=== PATIENT | female | born 1990 | race Caucasian/White ===

== ENCOUNTER 2021-04-08 14:34 | Emergency (ER) | payer OTHER ==
[~2021-04-08] VITALS: Ht 162 cm; Wt 75.0 kg
[2021-04-08] MEDS ORDERED: NS IV 1000 ML 1,000 ML IV SCH (14:45)
[2021-04-08 15:05] LABS: HEMATOCRIT 44 % (35-52); HEMOGLOBIN 14.5 G/DL (11.5-16.0); MEAN CORPUSCULAR HEMOGLOBIN 28 PG (25-34); MEAN CORPUSCULAR HGB CONC 33 G/DL (32-36); MEAN CORPUSCULAR VOLUME 83 FL (80-99); PLATELET COUNT 212 10^3/uL (130-400); WHITE BLOOD COUNT 7.7 10^3/uL (4.3-11.0)
[2021-04-08 15:06] LABS: BASOPHILS % (AUTO) 0 % (0-10); EOSINOPHILS % (AUTO) 0 % (0-10); LYMPHOCYTES # (AUTO) 1.1 X 10^3 (1.0-4.0); LYMPHOCYTES % (AUTO) 14 % (12-44); MEAN PLATELET VOLUME 10.9 FL (7.4-10.4); MONOCYTES # (AUTO) 0.3 X 10^3 (0.0-1.0); MONOCYTES % (AUTO) 3 % (0-12); NEUTROPHILS # (AUTO) 6.3 X 10^3 (1.8-7.8); NEUTROPHILS % (AUTO) 82 % (42-75)
[2021-04-08 15:18] LABS: BILIRUBIN,TOTAL 0.4 MG/DL (0.1-1.0); BUN/CREATININE RATIO 14; CALCIUM 9.2 MG/DL (8.5-10.1); CARBON DIOXIDE 18 MMOL/L (21-32); CHLORIDE 96 MMOL/L (98-107); GFR ESTIMATED 84; GLUCOSE 81 MG/DL (70-105); POTASSIUM 4.1 MMOL/L (3.6-5.0); SODIUM 136 MMOL/L (135-145)
[2021-04-08 15:19] LABS: ALANINE AMINOTRANSFERASE 18 U/L (0-55); ALBUMIN 4.1 GM/DL (3.2-4.5); ALKALINE PHOSPHATASE 86 U/L (40-136)
[2021-04-08] MEDS ORDERED: ONDANSETRON 4 MG/2 ML (SDV) Z0FRAN IVP ONE (15:45)
--- NOTE | 2021-04-08 16:49 | ED General ---
General Chief Complaint: Abdominal/GI Problems Stated Complaint: DIZZINESS; WEAKNESS; COVID+ Nursing Triage Note: PT REPORTS SHE IS COVID + AND DIAGNOESED ON SUNDAY. HAS NOT BEEN ABLE TO KEEP ANYTHING DOWN TODAY. SHE TRIED HER PCP AND THEY HAD NOT CALLED HER BACK UNTIL SHE WAS HERE IN ER. Source of Information: Patient History of Present Illness Date Seen by Provider: Apr 08, 2021 Time Seen by Provider: 16:31 Initial Comments 31-year-old female presenting with diagnosis of Covid 19 on Sunday and having nausea, vomiting, diarrhea, cough. She states that they have been trying to ca denis Osuna through the [facility] clinic and having trouble getting hold of her. The wanted to try and get nausea medicine and steroids to help with her symptoms and when he can return the family came to the emergency department since she felt so bad. She has generalized body aches and fatigue. She feels dizzy and lightheaded especially when she stands up. She has had decreased urine output. She has abdominal wall pain due to cough, nausea and vomiting. She has had fever and chills at home. Severity: Severe Associated Systoms: No Chest Pain; Cough; No Diaphoresis; Fever/Chills, Hea daches, Malaise, Nausea/Vomiting; No Rash, No Seizure; Shortness of Air; No Syncope; Weakness Allergies and Home Medications Allergies Coded Allergies: No Known Drug Allergies (Unverified , 04/08/21) Home Medications Azithromycin 500 Mg Tablet, 500 MG PO DAILY Prescribed by: KATERIN LYON on 04/08/211829 Metoclopramide HCl 10 Mg Tablet, 10 MG PO Q6H PRN for NAUSEA/VOMITING Prescribed by: KATERIN LYON on 04/08/211829 Prednisone 20 Mg Tab, 40 MG PO DAILY Prescribed by: KATERIN GALINDORT on 04/08/211829 Patient Home Medication List Home Medication List Reviewed: Yes Review of Systems Review of Systems Constitutional: chills, dizziness, fever, malaise, weakness EENTM: nose congestion Respiratory: cough, short of breath; No stridor Cardiovascular: No chest pain Gastrointestinal: abdominal pain (abdominal wall pain), nausea, vomiting Genitourinary: decreased output Musculoskeletal: other (generalized muscle and body aches) Skin: No rash Psychiatric/Neurological: Weakness (general) Past Qpmgwab-Poxesq-Vgpxls Hx Patient Social History Tobacco Use?: No Use of E-Cig and/or Vaping dev: No Substance use?: No Alcohol Use?: No Pt feels they are or have been: No Past Medical History Respiratory: No Cardiac: No Neurological: No Genitourinary: No Gastrointestinal: No Musculoskeletal: No Endocrine: No HEENT: No Cancer: No Psychosocial: No Physical Exam Vital Signs Vital Signs - First Documented 04/08/21 14:45 Temp 36.8 Pulse 117 Resp 20 B/P (MAP) 151/98 (115) Pulse Ox 98 O2 Delivery Room Air Capillary Refill : Less Than 3 Seconds Height, Weight, BMI Height: '" Weight: lbs. oz. kg; 28.00 BMI Method: General Appearance: Mild Distress (appears to not feel well) HEENT: PERRL/EOMI; No Moist Mucous Membranes (slightly dry mucous membranes) Neck: Full Range of Motion, Normal Inspection, Non Tender, Supple Respiratory: No Accessory Muscle Use, No Respiratory Distress, Decreased Breath Sounds, Rhonci Cardiovascular: Normal Peripheral Pulses, Tachycardia Gastrointestinal: Normal Bowel Sounds, No Pulsatile Mass, Soft, Tenderness (tender to abdominal wall muscles) Rectal: Deferred Extremity: Normal Capillary Refill, Normal Range of Motion, No Pedal Edema Neurologic/Psychiatric: Alert, Oriented x3, No Motor/Sensory Deficits, 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 Norm as Tested Skin: Normal Color, Warm/Dry Progress/Results/Core Measures Suspected Sepsis SIRS Temperature: Pulse: 117 Respiratory Rate: 20 Laboratory Tests 04/08/21 14:50: White Blood Count 7.7 Blood Pressure 151 /98 Mean: 115 Laboratory Tests 04/08/21 14:50: Creatinine 0.80, INR Comment 1.0, Platelet Count 212, Total Bilirubin 0.4 Results/Orders Lab Results Laboratory Tests Test 04/08/21 14:50 04/08/21 18:05 Range/Units White Blood Count 7.7 4.3-11.0 10^3/uL Red Blood Count 5.25 4.35-5.85 10^6/uL Hemoglobin 14.5 11.5-16.0 G/DL Hematocrit 44 35-52 % Mean Corpuscular Volume 83 80-99 FL Mean Corpuscular Hemoglobin 28 25-34 PG Mean Corpuscular Hemoglobin Concent 33 32-36 G/DL Red Cell Distribution Width 15.0 H 10.0-14.5 % Platelet Count 212 130-400 10^3/uL Mean Platelet Volume 10.9 H 7.4-10.4 FL Immature Granulocyte % (Auto) 1 % Neutrophils (%) (Auto) 82 H 42-75 % Lymphocytes (%) (Auto) 14 12-44 % Monocytes (%) (Auto) 3 0-12 % Eosinophils (%) (Auto) 0 0-10 % Basophils (%) (Auto) 0 0-10 % Neutrophils # (Auto) 6.3 1.8-7.8 X 10^3 Lymphocytes # (Auto) 1.1 1.0-4.0 X 10^3 Monocytes # (Auto) 0.3 0.0-1.0 X 10^3 Eosinophils # (Auto) 0.0 0.0-0.3 10^3/uL Basophils # (Auto) 0.0 0.0-0.1 10^3/uL Immature Granulocyte # (Auto) 0.1 0.0-0.1 10^3/uL Prothrombin Time 13.0 12.2-14.7 SEC INR Comment 1.0 0.8-1.4 Activated Partial Thromboplast Time 31 24-35 SEC D-Dimer 1.11 H 0.00-0.49 UG/ML Sodium Level 136 135-145 MMOL/L Potassium Level 4.1 3.6-5.0 MMOL/L Chloride Level 96 L 98-107 MMOL/L Carbon Dioxide Level 18 L 21-32 MMOL/L Anion Gap 22 H 5-14 MMOL/L Blood Urea Nitrogen 11 7-18 MG/DL Creatinine 0.80 0.60-1.30 MG/DL Estimat Glomerular Filtration Rate 84 BUN/Creatinine Ratio 14 Glucose Level 81 70-105 MG/DL Calcium Level 9.2 8.5-10.1 MG/DL Corrected Calcium 9.1 8.5-10.1 MG/DL Total Bilirubin 0.4 0.1-1.0 MG/DL Aspartate Amino Transf (AST/SGOT) 32 5-34 U/L Alanine Aminotransferase (ALT/SGPT) 18 0-55 U/L Alkaline Phosphatase 86 40-136 U/L Troponin I < 0.30 <0.30 NG/ML C-Reactive Protein 8.43 H <0.50 MG/DL Total Protein 8.0 6.4-8.2 GM/DL Albumin 4.1 3.2-4.5 GM/DL Serum Test, Qualitative NEGATIVE NEGATIVE Urine Color YELLOW Urine Clarity CLEAR Urine pH 6.0 5-9 Urine Specific English >=1.030 1.016-1.022 Urine Protein 2+ H NEGATIVE Urine Glucose (UA) NEGATIVE NEGATIVE Urine Ketones 2+ H NEGATIVE Urine Nitrite NEGATIVE NEGATIVE Urine Bilirubin NEGATIVE NEGATIVE Urine Urobilinogen 0.2 < = 1.0 MG/DL Urine Leukocyte Esterase NEGATIVE NEGATIVE Urine RBC (Auto) 1+ H NEGATIVE Urine RBC NONE /HPF Urine WBC 0-2 /HPF Urine Squamous Epithelial Cells 2-5 /HPF Urine Crystals NONE /LPF Urine Bacteria FEW H /HPF Urine Casts NONE /LPF Urine Mucus NEGATIVE /LPF Urine Culture Indicated NO My Orders Orders - KATERIN LYON MD Monitor-Rhythm Ecg Trace Only (04/08/21 14:42) Ed Iv/Invasive Line Start (04/08/21 14:42) Cbc With Automated Diff (04/08/21 14:42) Comprehensive Metabolic Panel (04/08/21 14:42) Crp Fs (04/08/21 14:42) Troponin I Fs (04/08/21 14:42) Protime With Inr (04/08/21 14:42) Partial Thromboplastin Time (04/08/21 14:42) Ekg Tracing (04/08/21 14:42) Ns Iv 1000 Ml (Sodium Chloride 0.9%) (04/08/21 14:45) Blood Culture (04/08/21 14:42) Lactic Acid Analyzer (04/08/21 14:42) Fibrin Degradation Products (04/08/21 14:42) Ondansetron Injection (Zofran Injectio (04/08/21 15:45) Hcg,Qualitative Serum (04/08/21 17:03) Ua Culture If Indicated (04/08/21 17:03) Ct Angio Chest W (04/08/21 17:03) Ns Iv 1000 Ml (Sodium Chloride 0.9%) (04/08/21 17:04) Dexamethasone Injection (Decadron Inje (04/08/21 17:04) Rx-Albuterol Inhaler (Rx-Ventolin Hfa) (04/08/21 17:04) Nursing Communication (Order) (04/08/21 17:04) Ketorolac Injection (Toradol Injection) (04/08/21 17:06) Iohexol Injection (Omnipaque 350 Mg/Ml 1 (04/08/21 17:15) Received Contrast (Hold Metformin- Contr (04/08/21 17:15) Ns (Ivpb) (Sodium Chloride 0.9% Ivpb Bag (04/08/21 17:15) Medications Given in ED Current Medications Medications Dose Ordered Sig/Johnny Route Start Time Stop Time Status Last Admin Dose Admin Iohexol 100 ml ONCE ONCE IV 04/08/21 17:15 04/08/21 17:16 DC 04/08/21 17:37 100 ML Ondansetron HCl 4 mg ONCE ONCE IVP 04/08/21 15:45 04/08/21 15:46 DC 04/08/21 15:45 4 MG Sodium Chloride 100 ml ONCE ONCE IV 04/08/21 17:15 04/08/21 17:16 DC 04/08/21 17:37 100 ML Vital Signs/I&O 04/08/21 04/08/21 14:45 18:26 Temp 36.8 36.8 Pulse 117 111 Resp 20 20 B/P (MAP) 151/98 (115) 135/69 (115) Pulse Ox 98 98 O2 Delivery Room Air Room Air Capillary Refill : Less Than 3 Seconds Blood Pressure Mean: 115 Progress Note #1: Progress Note Obtain basic labs as well as blood culture and lactic acid. Give IV fluids for hydration. Zofran for nausea. Progress Note #2: Progress Note Labs show stable CBC without acute significant abnormality. Chemistry does show elevated CRP and she has an elevated D-dimer 1.1. Her renal and hepatic function are not showing acute significant abnormality. Pt feels a little better after 1 L NS and Zofran. She still has not had to urinate and still has cough. She was agreeable to having CT angiogram performed to help rule out PE due to elevated D-dimer. This may also be elevated because of the Covid infection itself. Give steroid to help with cough and shortness of breath, repeat Liter of NS bolus since she is still tachycardic, albuterol inhaler with spacer to help with cough and breathing. Progress Note #3: Progress Note CT angiogram demonstrates pulmonary infiltrates consistent with Covid-19 but no PE seen. She does have motion artifact from breathing. Will discharge on inhaler with spacer, steroid, zithromax, anti-emetic Diagnostic Imaging Diagonstic Imaging: CT Plain Films/CT/US/NM/MRI: chest Comments NAME: CARMELA LAZAR [facility] REC#: [id number] PT STATUS: REG ER : 1990 PHYSICIAN: KATERIN LYON MD ADMIT DATE: 04/08/21/ER FS Draft Date of Exam:04/08/21 CT ANGIO CHEST W PROCEDURE: CT angiography of the chest with contrast. TECHNIQUE: Multiple contiguous axial images were obtained through the chest after uneventful bolus administration of intravenous contrast. 3D reconstructed CTA MIP acquisitions were also performed. Auto Exposure Controls were utilized during the CT exam to meet ALARA standards for radiation dose reduction. INDICATION: COVID positive, shortness of breath. COMPARISON: None available. FINDINGS: No significant adenopathy within the chest. No aneurysmal dilatation of the thoracic aorta. The heart is within normal limits in size. No significant pericardial effusion. Trace bilateral pleural effusions. No pneumothorax. Extensive patchy geographic groundglass opacities are identified throughout the lungs bilaterally, greatest within the lower lobes. Evaluation for pulmonary emboli is limited secondary to respiratory motion. Within the limits of the exam, no significant large central or segmental pulmonary embolus. Scattered regions of scarring within the superior poles of the bilateral kidneys. The minimally visualized upper abdomen is otherwise unremarkable. No acute osseous abnormality. IMPRESSION: No significant pulmonary embolus within the limits of the exam, though exam is limited secondary to respiratory motion. Extensive bilateral pulmonary infiltrates, consistent with provided history of COVID-19. Tiny bilateral pleural effusions. Dictated on workstation # [id number] Dict: 04/08/21 1746 Trans: 04/08/21 1753 [id number] Interpreted by: LISA BENITEZ MD Electronically signed by: Departure Impression Primary Impression: Nausea vomiting and diarrhea Additional Impressions: COVID-19 virus infection Acute viral syndrome Disposition: 01 HOME, SELF-CARE Condition: Stable Departure-Patient Inst. Decision time for Depature: 18:30 Referrals: CARMELA OSUNA APRN (PCP) Primary Care Physician [facility] (Family) Primary Care Physician Patient Instructions: COVID-19 ED, How to Use Your Metered Dose Inhaler (Adults), How to Use a Spacer, Nausea and Vomiting, Adult ED, Recovery After COVID-19 Add. Discharge Instructions: Use inhaler with spacer to help with breathing and cough. Take Mucinex to help loosen cough and congestion. Take the nausea medicine as needed to help keep your stomach settled so you can drink fluids and stay hydrated The steroid will help with your congestion and breathing. The Azithromycin antibiotic will help treat for possible bacterial infection that can develop along with viral Covid infection Check back with clinic for continued concerns All discharge instructions reviewed with patient and/or family. Voiced understanding. Scripts Metoclopramide HCl (Metoclopramide HCl) 10 Mg Tablet 10 MG PO Q6H PRN for NAUSEA/VOMITING for 5 Days, #20 TAB 0 Refills Prov: KATERIN LYON MD 04/08/21 Azithromycin (Azithromycin) 500 Mg Tablet 500 MG PO DAILY for 5 Days, #5 TAB 0 Refills Prov: KATERIN LYON MD 04/08/21 Prednisone (Prednisone) 20 Mg Tab 40 MG PO DAILY for 4 Days, #8 TAB 0 Refills Prov: KATERIN LYON MD 04/08/21 KATERIN LYON MD Apr 08, 2021 16:49
[2021-04-08] MEDS ORDERED: RX-ALBUTEROL INHALER (VENTOLIN HFA) 8.5 GM IH STA (17:04)
[2021-04-08] MEDS ORDERED: NS IV 1000 ML 1,000 ML IV STA (17:04)
[2021-04-08] MEDS ORDERED: KETOROLAC 30 MG/ML VIAL IVP STA (17:06)
[2021-04-08] MEDS ORDERED: IOHEXOL 350 MG/ML 100 ML (OMNIPAQUE 350) VIAL IV ONE (17:15)
[2021-04-08] MEDS ORDERED: NS 100 ML (IVPB) BAG IV ONE (17:15)
[2021-04-08] MEDS ORDERED: HOLD METFORMIN - RECEIVED CONTRAST 20 ML VIAL IV SCH (17:15)
--- NOTE | 2021-04-08 17:54 | Diagnostic Imaging Report ---
PROCEDURE: CT angiography of the chest with contrast. TECHNIQUE: Multiple contiguous axial images were obtained through the chest after uneventful bolus administration of intravenous contrast. 3D reconstructed CTA MIP acquisitions were also performed. Auto Exposure Controls were utilized during the CT exam to meet ALARA standards for radiation dose reduction. INDICATION: COVID positive, shortness of breath. COMPARISON: None available. FINDINGS: No significant adenopathy within the chest. No aneurysmal dilatation of the thoracic aorta. The heart is within normal limits in size. No significant pericardial effusion. Trace bilateral pleural effusions. No pneumothorax. Extensive patchy geographic groundglass opacities are identified throughout the lungs bilaterally, greatest within the lower lobes. Evaluation for pulmonary emboli is limited secondary to respiratory motion. Within the limits of the exam, no significant large central or segmental pulmonary embolus. Scattered regions of scarring within the superior poles of the bilateral kidneys. The minimally visualized upper abdomen is otherwise unremarkable. No acute osseous abnormality. IMPRESSION: No significant pulmonary embolus within the limits of the exam, though exam is limited secondary to respiratory motion. Extensive bilateral pulmonary infiltrates, consistent with provided history of COVID-19. Tiny bilateral pleural effusions. Dictated by: Dictated on workstation # [id number]
[2021-04-08 18:14] LABS: BACTERIA,URINE FEW /HPF; BILIRUBIN,URINE NEGATIVE (NEGATIVE); CLARITY,URINE CLEAR; COLOR,URINE YELLOW; GLUCOSE, URINE (UA) NEGATIVE (NEGATIVE); KETONES,URINE 2+ (NEGATIVE); LEUKOCYTE ESTERASE ,URINE NEGATIVE (NEGATIVE); NITRITE,URINE NEGATIVE (NEGATIVE); PROTEIN,URINE 2+ (NEGATIVE); WBC,URINE 0-2 /HPF
[2021-04-08 18:26] VITALS: BP 135/69
[2021-04-08] MEDS ORDERED: MTC10T PO (18:30)
[2021-04-08] MEDS ORDERED: PRD20T PO (18:30)
[2021-04-08] MEDS ORDERED: AZIT500T9 PO (18:30)
== END 2021-04-08 18:35 | disposition home or self-care (01) ==
LOC: ER FS 14:39
DX: U07.1 COVID-19 (principal); R11.2 Nausea with vomiting, unspecified
CPT/HCPCS: 36415; 71275; 80053; 81000; 84484; 84703; 85025; 85379; 85610; 85730; 86141